=== PATIENT | female | born 1960 | race Caucasian/White ===

== ENCOUNTER → 2016-11-02 | Outpatient (CLI) | payer BC ==
[~2016-11-02] MED LIST: DICY20TA57 PO; IBUP-15 PO
== END ==
LOC: CARD 10:31
PROVIDERS: ATTEND Internal Medicine Cardiovascular Disease
DX: R00.2 Palpitations (principal); R06.02 Shortness of breath; D64.9 Anemia, unspecified; E66.9 Obesity, unspecified; Z72.0 Tobacco use
CPT/HCPCS: 93225; 93226

== ENCOUNTER → 2016-11-20 | Outpatient (CLI) | payer BC ==
--- NOTE | 2016-11-22 07:00 | ECHOCARDIOGRAPHY REPORT ---
DATE OF SERVICE: 11/20/2016 2D ECHOCARDIOGRAM REFERRING PHYSICIAN: Dr. Ledezma. MEASUREMENT: LVID end diastolic 3.6. IVS thickness 1.0. LVPW thickness 1.0. Left atrial diameter of 2.5. Ejection fraction 60%. FINDINGS: 1. Technical quality is good. 2. The left ventricle is normal in size with normal contractility, systolic function appeared to be normal, estimated ejection fraction 60%. 3. The left atrium is normal in size. No clots or thrombus were seen within the left atrium. 4. The right atrium and right ventricle are normal in size. No clot or thrombus were seen within the right side. 5. Mitral valve is normal in morphology with mild mitral regurgitation noted by color Doppler flow. No mitral valve prolapse. No mitral valve stenosis. 6. Aortic valve is mildly calcified, there is no significant aortic valve stenosis or regurgitation seen. 7. Tricuspid valve is normal in morphology with mild tricuspid regurgitation noted by color Doppler flow. Doppler across the tricuspid valve estimated pulmonary artery pressure of 11+ right atrial pressure. 8. Pulmonic valve is functioning normally. 9. No pericardial effusion. CONCLUSION: 1. Normal left ventricular size and systolic function, estimated ejection fraction 60%. 2. Mild mitral and tricuspid regurgitation. 3. Estimated pulmonary artery pressure of 20 mmHg. Job ID: [id number] DocumentID: [id number] Dictated Date: 11/21/2016 15:18:21 Head Knitting Machine Fixer Date: 11/21/2016 21:39:40 Dictated By: JOSSIE CAROLINA MD
== END ==
LOC: CARD 09:07
PROVIDERS: ATTEND Internal Medicine Cardiovascular Disease
DX: R00.2 Palpitations (principal); R06.02 Shortness of breath; D64.9 Anemia, unspecified; E66.9 Obesity, unspecified; Z72.0 Tobacco use
CPT/HCPCS: 93017; 93306

== ENCOUNTER → 2017-09-21 | Outpatient (CLI) | payer BC ==
--- NOTE | 2017-09-21 18:15 | Diagnostic Imaging Report ---
Digital mammogram bilateral screening. This study was compared to the prior exams of 12/03/2015, 11/18/2014, and 09/15/2013. At this time, there are no current complaints. The current study was also evaluated with a Computer Aided Detection (CAD) system. FINDINGS: The fibroglandular tissue in both breasts is heterogeneously dense. This does limit the sensitivity of this exam. On the craniocaudal view of the left breast in the medial most aspect of the breast, there is a small 5 mm nodular density lying approximately 5 cm from the nipple. This finding cannot be identified with certainty on the MLO view. Even so, I would recommend that a compression view of this area be obtained in the CC projection as well as a true lateral view. I would recommend that ultrasound of the left breast be performed as well. Furthermore on the MLO view of the left breast, there is a fairly well-defined 6 mm nodular density in the mid portion of the breast. This finding cannot be identified with certainty on the craniocaudal view however and may also be secondary to superimposition. I would recommend that this portion of the left breast be evaluated with ultrasound as well. The right breast is stable. IMPRESSION: Additional mammographic views and ultrasound of the left breast will be recommended for further study. ACR BI-RADS Category 0: Incomplete. (Needs additional imaging evaluation). Result letter will be mailed to the patient. Note: At least 10% of breast cancer is not imaged by mammography. Dictated by: Dictated on workstation # [id number]
== END ==
LOC: RAD 10:08
PROVIDERS: ATTEND Obstetrics & Gynecology
DX: Z12.31 Encounter for screening mammogram for malignant neoplasm of breast (principal)
CPT/HCPCS: 77067

== ENCOUNTER → 2017-10-03 | Outpatient (CLI) | payer BC ==
--- NOTE | 2017-10-03 13:51 | Diagnostic Imaging Report ---
INDICATION: Left breast density. The patient presents for additional views. Correlation is made with recent screening study from 09/21/2017. The current study was also evaluated with a Computer Aided Detection (CAD) system. Patient returned and 3-D spot compression cc and ML views as well as 2-D roll CC views and conventional 3-D mediolateral views were obtained. The density noted inferiorly in the left breast on the MLO views appears to represent superimposed fibroglandular tissue. No mass is identified. There is some mild persistent nodularity in the medial left breast on the cc view approximately 5-6 cm from the nipple. This area should be evaluated with ultrasound. No suspicious calcifications are seen. IMPRESSION: BI-RADS zero Mild persistent nodularity far posterior medial aspect of the left breast on the cc view. Further evaluation of the medial left breast with ultrasound is recommended and will be performed today. ACR BI-RADS Category 0: Incomplete. (Needs additional imaging evaluation). Result letter will be mailed to the patient. Note: At least 10% of breast cancer is not imaged by mammography. Dictated by: Dictated on workstation # [id number]
--- NOTE | 2017-10-03 14:29 | Diagnostic Imaging Report ---
INDICATION: Left breast density. Patient presents for further evaluation. Correlation is made with diagnostic mammogram earlier same day. Sonographic interrogation of the inner left breast was performed. No solid or cystic masses detected. IMPRESSION: BI-RADS category 1. No sonographic abnormality is seen. Patient may return to routine annual screening mammography. ACR BI-RADS Category 1: Negative. Dictated by: Dictated on workstation # [id number]
== END ==
LOC: RAD 13:20
PROVIDERS: ATTEND Nurse Practitioner
DX: N63.20 Unspecified lump in the left breast, unspecified quadrant (principal)
CPT/HCPCS: 76642

== ENCOUNTER → 2019-01-13 | Outpatient (CLI) | payer BC ==
--- NOTE | 2019-01-13 09:47 | Diagnostic Imaging Report ---
INDICATION: Routine screening. COMPARISON: 09/21/2017 and 12/03/2015. TECHNIQUE: 2D and 3D bilateral screening mammography was performed with CAD. FINDINGS: Both breasts remain heterogeneously dense, limiting the sensitivity of mammography. An intraparenchymal lymph node in the upper outer right breast is stable. The parenchymal pattern appears stable. No new mass or malignant appearing microcalcifications are seen. The axillae are unremarkable. IMPRESSION: No mammographic features suspicious for malignancy are identified. ACR BI-RADS Category 2: Benign findings. Result letter will be mailed to the patient. Note: At least 10% of breast cancer is not imaged by mammography. Dictated by: Dictated on workstation # [id number]
== END ==
LOC: RAD 07:19
PROVIDERS: ATTEND Obstetrics & Gynecology
DX: Z12.31 Encounter for screening mammogram for malignant neoplasm of breast (principal)
CPT/HCPCS: 77067

== ENCOUNTER 2019-04-02 11:30 | Outpatient (CLI) | payer BC ==
[~2019-04-02] VITALS: Ht 162.6 cm; Wt 58.1 kg
[2019-04-02] MEDS ORDERED: LISI10TA2 PO (12:00)
[2019-04-02] MEDS ORDERED: ATOR10TA66 PO (12:00)
[2019-04-02] MEDS ORDERED: RUTI1TAB PO (12:00)
== END 2019-04-02 12:05 | disposition home or self-care (01) ==
LOC: PREOP 11:30
PROVIDERS: ATTEND Surgery
DX: Z01.818 Encounter for other preprocedural examination (principal)

== ENCOUNTER 2019-04-08 08:00 | Day surgery (SDC) | payer BC ==
[~2019-04-08] VITALS: Ht 162.6 cm; Wt 58.1 kg
[~2019-04-08 08:00] MED LIST changes: +ATOR10TA66 PO; +LISI10TA2 PO; +RUTI1TAB PO
[2019-04-08] MEDS ORDERED: LACTATED RINGERS 1,000 ML IV ONE (08:05)
[2019-04-08] MEDS ORDERED: PROPOFOL INJECTION 50 ML IV ONE (08:24)
[2019-04-08] MEDS ORDERED: MIDAZOLAM 2 MG/2 ML (VERSED) VIAL ONE (08:25)
[2019-04-08] MEDS ORDERED: LACTATED RINGERS 1,000 ML IV STA (08:26)
[2019-04-08 08:29] VITALS: BP 125/90
--- NOTE | 2019-04-08 09:29 | Progress Note-Pre Operative ---
Pre-Operative Progress Note H&P Reviewed The H&P was reviewed, patient examined and no changes noted. Date Seen by Provider: Apr 08, 2019 Time Seen by Provider: :22 Date H&P Reviewed: Apr 08, 2019 Time H&P Reviewed: :22 Pre-Operative Diagnosis: hx polyps DIRK WOMACK DO Apr 08, 2019 09:29
[2019-04-08 10:05] VITALS: BP 119/88
--- NOTE | 2019-04-08 10:05 | Progress Note-Post Operative ---
Post-Operative Progess Note Surgeon (s)/Sales Engagement Executive (s) Surgeon DIRK WOMACK DO Sales Engagement Executive: na Pre-Operative Diagnosis hx polyps Post-Operative Diagnosis rectal polyp Procedure & Operative Findings Date of Procedure 04/08/19 Procedure Performed/Findings colonoscopy c hot bx polypectomy Anesthesia Type per mannequin maker Estimated Blood Loss Estimated blood loss (mL): none Specimens/Packing Specimens Removed rectal polyp DIRK WOMACK DO Apr 08, 2019 10:05
--- NOTE | 2019-04-08 10:06 | Discharge Inst-Simple/Standard ---
Discharge Inst-Standard Patient Instructions/Follow Up Plan of Care/Instructions/FU: 2 week Sandra Activity as Tolerated: Yes Discharge Diet: Regular Diet DIRK WOMACK DO Apr 08, 2019 10:06
[2019-04-08 10:40] VITALS: BP 132/74
[2019-04-08 10:42] VITALS: BP 132/74
--- NOTE | 2019-04-08 12:46 | Anesthesia-General Post-Op ---
MAC Patient Condition Mental Status/LOC: Same as Preop Cardiovascular: Satisfactory Nausea/Vomiting: Absent Respiratory: Satisfactory Pain: Controlled Complications: Absent Post Op Complications Complications None Follow Up Care/Instructions Patient Instructions None needed. Anesthesiology Discharge Order Discharge Order Patient is doing well, no complaints, stable vital signs, no apparent adverse anesthesia problems. No complications reported per nursing. APOLLO LUCERO CRNA Apr 08, 2019 12:46
--- NOTE | 2019-04-08 14:47 | OPERATIVE REPORT ---
DATE OF SERVICE: 04/08/2019 PREOPERATIVE DIAGNOSIS: History of polyps. POSTOPERATIVE DIAGNOSIS: Rectal polyp. PROCEDURE PERFORMED: Colonoscopy with hot biopsy polypectomy. SURGEON: Dirk Flores DO ANESTHESIA: Per TAKER OFF DRYING KILN. ESTIMATED BLOOD LOSS: None. COMPLICATIONS: None. INDICATIONS: The patient is a 59-year-old female with a history of colon polyps. She understands risks and benefits of procedure and wished to proceed with procedure. Consent was signed in the chart. DESCRIPTION OF PROCEDURE: The patient was taken to the endoscopy suite, placed in left lateral recumbent position. Timeout was performed. Digital rectal exam was performed. There were no palpable polyps, masses or ulcerations. Scope was inserted in the rectum, advanced all the way to the cecum with minimal difficulty. Prep was adequate. Scope was then slowly retracted back. There were no polyps, masses or ulcerations in the cecum, ascending, transverse, descending and sigmoid colon. Once in the rectum, small polyp was present, which hot biopsy polypectomy was performed. Scope was retroflexed noting no other pathology. Scope was returned to its normal position, slowly withdrawn until completely removed. The patient tolerated procedure well without any complications. She was taken to recovery room in stable condition. RECOMMENDATIONS: The patient will need repeat colonoscopy in 5 years. Any issues before that be seen at that time. The patient will be seen in the office in two weeks to discuss pathology results. Job ID: [id number] DocumentID: [id number] Dictated Date: 04/08/2019 10:08:15 Wax Cutter Date: 04/08/2019 14:47:14 Dictated By: DIRK FLORES DO
== END 2019-04-08 10:45 | disposition home or self-care (01) ==
LOC: ENDO 08:00
PROVIDERS: ATTEND Surgery
DX: Z12.11 Encounter for screening for malignant neoplasm of colon (principal); K62.1 Rectal polyp; I10 Essential (primary) hypertension; E78.5 Hyperlipidemia, unspecified; D64.9 Anemia, unspecified; M19.90 Unspecified osteoarthritis, unspecified site; Z82.3 Family history of stroke; Z82.49 Family history of ischemic heart disease and other diseases of the circulatory system; Z86.010 Personal history of colon polyps; Z90.49 Acquired absence of other specified parts of digestive tract; Z87.891 Personal history of nicotine dependence; Z79.899 Other long term (current) drug therapy

== ENCOUNTER → 2020-02-03 | Outpatient (CLI) | payer BC, OTHER ==
--- NOTE | 2020-02-03 21:04 | Diagnostic Imaging Report ---
EXAM: Digital mammogram bilateral screening COMPARISON: This study was compared to the prior exams of 01/13/2019, 09/21/2017 and 12/03/2015. There are no current complaints. The current study was also evaluated with a Computer Aided Detection (CAD) system. FINDINGS: The fibroglandular tissue in both breasts is heterogeneously dense. This does limit the sensitivity of this exam. Overall, there does not appear to have been any significant change when compared to the prior study. No primary or secondary sign of malignancy is noted. IMPRESSION: There is no radiographic evidence for malignancy. ACR BI-RADS Category 1: Negative. Result letter will be mailed to the patient. Note: At least 10% of breast cancer is not imaged by mammography. Dictated by: Dictated on workstation # [id number]
== END ==
LOC: RAD 08:15
PROVIDERS: ATTEND Obstetrics & Gynecology
DX: Z12.31 Encounter for screening mammogram for malignant neoplasm of breast (principal)
CPT/HCPCS: 77063; 77067

== ENCOUNTER → 2021-02-03 | Outpatient (CLI) | payer OTHER ==
[~2021-02-03] MED LIST changes: -LISI10TA2 PO; +LISI10TA25 PO
--- NOTE | 2021-02-03 12:19 | Diagnostic Imaging Report ---
INDICATION: Routine screening. COMPARISON is made with prior mammograms 02/03/2020 and 01/13/2019. 2-D and 3-D bilateral screening mammography was performed with CAD. Both breasts are heterogeneously dense, limiting the sensitivity of mammography. There are benign calcifications in the left breast. No mass or malignant-appearing microcalcifications are seen. Axillae are unremarkable. IMPRESSION: BI-RADS Category 2 No mammographic features suspicious for malignancy are identified. ACR BI-RADS Category 2: Benign findings. Result letter will be mailed to the patient. Note: At least 10% of breast cancer is not imaged by mammography. Dictated by: Dictated on workstation # [id number]
== END ==
LOC: RAD 11:15
PROVIDERS: ATTEND Obstetrics & Gynecology
DX: Z12.31 Encounter for screening mammogram for malignant neoplasm of breast (principal)
CPT/HCPCS: 77063; 77067

== ENCOUNTER → 2021-09-29 | Outpatient (CLI) | payer OTHER ==
--- NOTE | 2021-09-29 16:20 | Diagnostic Imaging Report ---
PROCEDURE: US left lower extremity venous. TECHNIQUE: Multiple real-time grayscale images were obtained over the left lower extremity in various projections. Additional duplex Doppler and color Doppler images were also obtained. INDICATION: Left lower extremity swelling and pain. COMPARISON: None. FINDINGS: Visualized deep and superficial venous system is patent. There is no DVT. There is an intramuscular fluid collection involving the calf, which may represent hematoma. IMPRESSION: 1. Fluid collection, likely hematoma. 2. No DVT identified. Dictated by: Dictated on workstation # [id number]
== END ==
LOC: RAD 15:00
PROVIDERS: ATTEND Family Medicine
DX: I82.402 Acute embolism and thrombosis of unspecified deep veins of left lower extremity (principal); E78.2 Mixed hyperlipidemia

== ENCOUNTER 2021-11-21 09:41 | Emergency (ER) | payer OTHER ==
--- NOTE | 2021-11-21 09:59 | ED General ---
General Chief Complaint: Dizziness/Syncope Stated Complaint: DIZZY - HIGH BP Nursing Triage Note: PT AMB TO RM 5 WITH C/O DIZZINESS THAT STARTED LAST NIGHT AND INCREASED BP Source of Information: Patient Exam Limitations: No Limitations History of Present Illness Date Seen by Provider: November 21, 2021 Time Seen by Provider: 09:59 Initial Comments Patient is a 61-year-old female who presents to the emergency department today with a chief complaint of feeling very dizzy and her blood pressure is elevated. Patient states that her dizziness started at some point during the night when she got up to go to the bathroom, she states she gets up frequently to use the restroom at night. She denies any headache or visual changes. She states her dizziness is much worse with standing. Remaining still seems to make it feel a little bit better but even with sitting when she closes her eyes she feels dizzy. She has not fallen as a result of her dizziness, no injury. She denies any recent illnesses such as fevers, chills, URI, GI symptoms. No earache or sore throat. No chest pain or shortness of breath. No urinary complaints. No medications this morning for it. She is not nauseous. She does relate that her father had a history of a stroke but this was during carotid surgery. She does take medications for hypertension and hypercholesterolemia. She denies ringing in her ears, ear fullness or hearing loss. All other review of systems reviewed and negative except as stated. Timing/Duration: Other (uncertain but within the last 12 hours) Severity: Moderate Modifying Factors: improves with Immobilization, improves with Other (standing up) Associated Systoms: Denies Symptoms Allergies and Home Medications Allergies Coded Allergies: No Known Drug Allergies (Unverified , 05/15/12) Patient Home Medication List Home Medication List Reviewed: Yes Atorvastatin Calcium (Atorvastatin Calcium) 10 Mg Tablet, 10 MG PO HS, (Reported) Entered as Reported by: COLETTE MOTT on 04/02/19 1200 Lisinopril (Lisinopril) 10 Mg Tablet, 10 MG PO DAILY, (Reported) Entered as Reported by: COLETTE MOTT on 04/02/19 1200 Rutin/Hesp/Bioflav/C/Herb#196 (Bioflex Tablet) 1 Each Tablet, 1 EACH PO DAILY, (Reported) Entered as Reported by: COLETTE MOTT on 04/02/19 1200 Review of Systems Review of Systems Constitutional: see HPI, dizziness EENTM: no symptoms reported Respiratory: no symptoms reported Cardiovascular: no symptoms reported Gastrointestinal: no symptoms reported Genitourinary: no symptoms reported Musculoskeletal: no symptoms reported Skin: no symptoms reported Psychiatric/Neurological: Other (dizzy) All Other Systems Reviewed Negative Unless Noted: Yes Past Trtobzu-Lklffj-Ovynnd Hx Patient Social History Tobacco Use?: No Use of E-Cig and/or Vaping dev: No Substance use?: Yes Substance type: Marijuana Substance frequency: Several times a month Alcohol Use?: Yes Alcohol type: Wine Alcohol Frequency: Once in a while Pt feels they are or have been: No Immunizations Up To Date Tetanus Booster (TDap): Unknown First/Initial COVID19 Vaccinat: FEB 2021 Second COVID19 Vaccination Karl: MAR 2021 COVID19 Vaccine Professor Of Astronomy: sliceX Seasonal Allergies Seasonal Allergies: No Past Medical History Surgery/Hospitalization HX: HTN,HLD DONNA Surgeries: Yes (D&C) Gallbladder Respiratory: No Currently Using CPAP: No Currently Using BIPAP: No Cardiac: Yes High Cholesterol, Hypertension Neurological: No Reproductive Disorders: No Female Reproductive Disorders: Denies Sexually Transmitted Disease: No HIV/AIDS: No Genitourinary: No Gastrointestinal: No Polyps Musculoskeletal: Yes Arthritis Endocrine: No HEENT: No Cancer: No Psychosocial: No Integumentary: No Blood Disorders: No Physical Exam Vital Signs Vital Signs - First Documented 11/21/21 09:48 Temp 35.7 Pulse 73 Resp 20 B/P (MAP) 174/100 (124) Capillary Refill : Height, Weight, BMI Height: '" Weight: lbs. oz. kg; 21.97 BMI Method:Stated General Appearance: No Apparent Distress, WD/WN Eyes: Bilateral Eye Normal Inspection, Bilateral Eye PERRL, Bilateral Eye EOMI HEENT: TMs Normal, Pharynx Normal, Moist Mucous Membranes Neck: Full Range of Motion, Normal Inspection Respiratory: Lungs Clear, Normal Breath Sounds, No Accessory Muscle Use, No Respiratory Distress Cardiovascular: Regular Rate, Rhythm, Normal Peripheral Pulses Gastrointestinal: Non Tender, Soft Extremity: Normal Capillary Refill, Normal Inspection, Normal Range of Motion, No Pedal Edema Neurologic/Psychiatric: Alert, Oriented x3, No Motor/Sensory Deficits, Normal Mood/Affect, process project engineer II-XII Norm as Tested, Other (Patient has normal epjf-to-bclf. Tongue is midline. Cranial nerves are intact. She does not have a wide-based ataxic gait but when she walks she tends to walk to the right. No nystagmus is noted. Gauri Hallpike is negative) Skin: Normal Color, Warm/Dry Progress/Results/Core Measures Suspected Sepsis SIRS Temperature: Pulse: 73 Respiratory Rate: 20 Laboratory Tests 11/21/21 09:50: White Blood Count 5.8 Blood Pressure 174 /100 Mean: 124 Laboratory Tests 11/21/21 09:50: Creatinine 0.79, Platelet Count 415H Results/Orders Lab Results Laboratory Tests Test 11/21/21 09:50 Range/Units White Blood Count 5.8 4.3-11.0 10^3/uL Red Blood Count 4.31 3.80-5.11 10^6/uL Hemoglobin 13.4 11.5-16.0 g/dL Hematocrit 41 35-52 % Mean Corpuscular Volume 95 80-99 fL Mean Corpuscular Hemoglobin 31 25-34 pg Mean Corpuscular Hemoglobin Concent 33 32-36 g/dL Red Cell Distribution Width 13.2 10.0-14.5 % Platelet Count 415 H 130-400 10^3/uL Mean Platelet Volume 9.7 9.0-12.2 fL Immature Granulocyte % (Auto) 1 % Neutrophils (%) (Auto) 73 42-75 % Lymphocytes (%) (Auto) 17 12-44 % Monocytes (%) (Auto) 8 0-12 % Eosinophils (%) (Auto) 2 0-10 % Basophils (%) (Auto) 0 0-10 % Neutrophils # (Auto) 4.2 1.8-7.8 10^3/uL Lymphocytes # (Auto) 1.0 1.0-4.0 10^3/uL Monocytes # (Auto) 0.5 0.0-1.0 10^3/uL Eosinophils # (Auto) 0.1 0.0-0.3 10^3/uL Basophils # (Auto) 0.0 0.0-0.1 10^3/uL Immature Granulocyte # (Auto) 0.0 0.0-0.1 10^3/uL Sodium Level 140 135-145 MMOL/L Potassium Level 4.7 3.6-5.0 MMOL/L Chloride Level 103 98-107 MMOL/L Carbon Dioxide Level 26 21-32 MMOL/L Anion Gap 11 5-14 MMOL/L Blood Urea Nitrogen 9 7-18 MG/DL Creatinine 0.79 0.60-1.30 MG/DL Estimat Glomerular Filtration Rate 85 BUN/Creatinine Ratio 11 Glucose Level 118 H 70-105 MG/DL Calcium Level 9.9 8.5-10.1 MG/DL My Orders Orders - GUANACO PAZ MD Ed Iv/Invasive Line Start (11/21/21 10:14) Cbc With Automated Diff (11/21/21 10:14) Basic Metabolic Panel (11/21/21 10:14) Ekg Tracing (11/21/21 10:14) Ct Head Wo (11/21/21 10:14) Diazepam Injection (Valium Injection) (11/21/21 10:14) Meclizine Tablet (Antivert Tablet) (11/21/21 10:15) Medications Given in ED Current Medications Medications Dose Ordered Sig/Vee Route Start Time Stop Time Status Last Admin Dose Admin Meclizine HCl 25 mg ONCE ONCE PO 11/21/21 10:15 11/21/21 10:16 DC 11/21/21 10:20 25 MG Vital Signs/I&O 11/21/21 09:48 Temp 35.7 Pulse 73 Resp 20 B/P (MAP) 174/100 (124) Capillary Refill : Blood Pressure Mean: 124 Progress Note : Time: 11:16 Progress Note Patient re-examined after meds - she states she is feeling improved - there is still slight dizziness present. SHe has a negative Romberg. HINTS is also negative curiously enough. No focal neuro deficits are observed or elicited, making the diagnosis of a central vertigo much less likely. She has no headache. No nausea now. Advised patient and spouse to monitor symptoms closely and if any worsening or headache or new concerns to come back to the ER for re-evaluation. I do not think she needs an emergent MRI/MRA for cerebellar stroke. She is comfortable with this plan of care. All questions are sought and answered. 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 Meclizine for home. ECG Initial ECG Impression Date: November 21, 2021 Initial ECG Impression Time: 10:23 Initial ECG Rate: 69 Initial ECG Rhythm: Normal Sinus Initial ECG Intervals: Normal Initial ECG Impression: Normal Diagnostic Imaging Diagonstic Imaging: CT Comments [facility] [place], [place] NAME: SCOT NI[facility]O [facility] REC#: [id number] PT STATUS: REG ER : 1960 PHYSICIAN: GUANACO PAZ MD ADMIT DATE: 11/21/21/ER Draft Date of Exam:11/21/21 CT HEAD WO PROCEDURE: CT head without contrast. TECHNIQUE: Multiple contiguous axial images were obtained through the brain without the use of intravenous contrast. Auto Exposure Controls were utilized during the CT exam to meet ALARA standards for radiation dose reduction. INDICATION: Dizziness and trouble walking. COMPARISON: No prior head CTs are available for comparison. FINDINGS: Ventricles and sulci are within normal limits. No sulcal effacement or midline shift is identified. No acute intra-axial or extra-axial hemorrhage is detected. Cisterns are patent. Visualized paranasal sinuses are clear apart from some mucosal thickening in the sphenoid sinus. IMPRESSION: No acute intracranial process is detected. Dictated on workstation # [id number] Dict: 11/21/21 1045 Trans: 11/21/21 1053 [id number] Interpreted by: SHELLEY NICHOLS MD Electronically signed by: Departure Impression Primary Impression: Vertigo Disposition: 01 HOME, SELF-CARE Condition: Stable Departure-Patient Inst. Decision time for Depature: 11:19 Referrals: ROMINA SUAREZ DO (PCP/Family) Primary Care Physician Patient Instructions: Vertigo (a Type of Dizziness) (DC) Add. Discharge Instructions: Drink plenty of fluids to stay well hydrated. Use the meclizine at home, 1 pill every 6 hours over the next few days as needed for dizziness. If you have ANY worsening symptoms, especially with a headache, vomiting or other concerns, please come back to the Emergency Department for further evaluation. Off work for 2 days and if improving, may return on Sunday. Scripts Meclizine HCl (Meclizine HCl) 25 Mg Tablet 25 MG PO Q6H PRN for dizziness, #30 TAB Prov: GUANACO PAZ MD 11/21/21 Work/School Note: Work Release Form Date Seen in the Emergency Department: November 21, 2021 Return to Work: November 23, 2021 GUANACO PAZ MD November 21, 2021 09:59
[2021-11-21] MEDS ORDERED: DIAZEPAM INJ 10 MG/2 ML (VALIUM) SYR IVP STA (10:14)
[2021-11-21] MEDS ORDERED: MECLIZINE 25 MG (ANTIVERT) TAB PO ONE (10:15)
[2021-11-21 10:20] LABS: BASOPHILS % (AUTO) 0 % (0-10); EOSINOPHILS # (AUTO) 0.1 10^3/uL (0.0-0.3); EOSINOPHILS % (AUTO) 2 % (0-10); HEMATOCRIT 41 % (35-52); HEMOGLOBIN 13.4 g/dL (11.5-16.0); LYMPHOCYTES % (AUTO) 17 % (12-44); MEAN CORPUSCULAR HEMOGLOBIN 31 pg (25-34); MEAN CORPUSCULAR HGB CONC 33 g/dL (32-36); MEAN CORPUSCULAR VOLUME 95 fL (80-99); MEAN PLATELET VOLUME 9.7 fL (9.0-12.2); MONOCYTES # (AUTO) 0.5 10^3/uL (0.0-1.0); MONOCYTES % (AUTO) 8 % (0-12); NEUTROPHILS # (AUTO) 4.2 10^3/uL (1.8-7.8); NEUTROPHILS % (AUTO) 73 % (42-75); PLATELET COUNT 415 10^3/uL (130-400); WHITE BLOOD COUNT 5.8 10^3/uL (4.3-11.0)
[2021-11-21 10:22] LABS: POTASSIUM 4.7 MMOL/L (3.6-5.0)
[2021-11-21 10:24] LABS: CALCIUM 9.9 MG/DL (8.5-10.1)
[2021-11-21 10:28] LABS: CREATININE SERUM 0.79 MG/DL (0.60-1.30)
--- NOTE | 2021-11-21 10:54 | Diagnostic Imaging Report ---
PROCEDURE: CT head without contrast. TECHNIQUE: Multiple contiguous axial images were obtained through the brain without the use of intravenous contrast. Auto Exposure Controls were utilized during the CT exam to meet ALARA standards for radiation dose reduction. INDICATION: Dizziness and trouble walking. COMPARISON: No prior head CTs are available for comparison. FINDINGS: Ventricles and sulci are within normal limits. No sulcal effacement or midline shift is identified. No acute intra-axial or extra-axial hemorrhage is detected. Cisterns are patent. Visualized paranasal sinuses are clear apart from some mucosal thickening in the sphenoid sinus. IMPRESSION: No acute intracranial process is detected. Dictated by: Dictated on workstation # [id number]
[2021-11-21] MEDS ORDERED: MECL-149 PO (11:21)
[2021-11-21 11:33] VITALS: BP 152/95
== END 2021-11-21 11:36 | disposition home or self-care (01) ==
LOC: EDUNIT# 09:41 → ER 09:42
DX: R42 Dizziness and giddiness (principal)
CPT/HCPCS: 36415; 70450; 80048; 85025; 93005

== ENCOUNTER → 2022-03-14 | Outpatient (CLI) | payer OTHER ==
[~2022-03-14] MED LIST changes: +MECL-149 PO
--- NOTE | 2022-03-14 19:01 | Diagnostic Imaging Report ---
INDICATION: Routine screening. COMPARISON is made with prior mammograms 02/03/2021 and 02/03/2020. 2-D and 3-D bilateral screening mammography was performed with CAD. Both breasts are heterogeneously dense, limiting the sensitivity of mammography. Benign nodule outer right breast is stable. No new mass or malignant-appearing microcalcifications are seen. There are benign calcifications bilaterally. Axillae are unremarkable. IMPRESSION: BI-RADS Category 2 No mammographic features suspicious for malignancy are identified. ACR BI-RADS Category 2: Benign findings. Result letter will be mailed to the patient. Note: At least 10% of breast cancer is not imaged by mammography. Dictated by: Dictated on workstation # [id number]
== END ==
LOC: RAD 13:34
PROVIDERS: ATTEND Internal Medicine
DX: Z12.31 Encounter for screening mammogram for malignant neoplasm of breast (principal)
CPT/HCPCS: 77063; 77067

== ENCOUNTER → 2023-05-04 | Outpatient (CLI) | payer OTHER ==
[~2023-05-04] MED LIST changes: -MECL-149 PO; +MECL-291 PO
--- NOTE | 2023-05-04 20:55 | Diagnostic Imaging Report ---
INDICATION: Routine screening. Comparison is made with prior mammogram from 03/14/2022 and 02/03/2021. 2-D and 3-D bilateral screening mammography was performed with CAD. Both breasts are heterogeneously dense, limiting the sensitivity of mammography. The parenchymal pattern is stable. Benign nodule outer right breast is stable. There are benign calcifications bilaterally. No mass or malignant-appearing microcalcifications are seen. Axillae are unremarkable. IMPRESSION: No mammographic features suspicious for malignancy are identified. ACR BI-RADS Category 2: Benign findings. Result letter will be mailed to the patient. Note: At least 10% of breast cancer is not imaged by mammography. BI-RADS Category 2 Dictated by: Dictated on workstation # [id number]
== END ==
LOC: RAD 14:58
PROVIDERS: ATTEND Internal Medicine
DX: Z12.31 Encounter for screening mammogram for malignant neoplasm of breast (principal)
CPT/HCPCS: 77063; 77067